=== PATIENT | male | born 1940 ===

== ENCOUNTER 2023-02-22 12:53 | Outpatient (CLI) | payer MEDICARE ==
[2023-02-22] MEDS ORDERED: Magnevist 469MG/ML 20 ML VIAL ONE (13:26)
== END 2023-02-22 12:54 | disposition home or self-care (01) ==
LOC: CSHMRI 12:53
PROVIDERS: ATTEND Otolaryngology Otolaryngic Allergy
DX: H90.3 Sensorineural hearing loss, bilateral (principal); R42 Dizziness and giddiness; G93.89 Other specified disorders of brain; R90.82 White matter disease, unspecified
CPT/HCPCS: 70553; 82565; A9579